=== PATIENT | male | born 1995 | race Caucasian/White ===

== ENCOUNTER 2022-04-16 14:50 | Outpatient (CLI) | payer OTHER, SELFPAY ==
[2022-04-16 22:42] LABS: SARS PCR* Negative SARS-CoV-2 (Negative)
== END 2022-04-16 14:51 | disposition home or self-care (01) ==
LOC: KYNREF 14:51
PROVIDERS: PCP Nurse Practitioner Family; Visit Provider Nurse Practitioner Family
DX: Z20.822 Contact with and (suspected) exposure to COVID-19 (principal); R05.9 Cough, unspecified
CPT/HCPCS: 87635

== ENCOUNTER 2023-11-19 20:06 | Outpatient (CLI) | payer BC, SELFPAY ==
--- NOTE | 2024-01-14 08:49 | W.PM.SLEEP ---
Sleep Study Details Details Date of Sleep Study: 11/19/23 Sleep Study Details: STUDY TYPE:? Home unattended ? BMI:? 31.7 ORDERING PROVIDER:? Shreyas INDICATION:? Concerned about sleep apnea ? SLEEP SUMMARY:? 476.1 minutes monitor RESPIRATORY SUMMARY:? AHI 7.2 , snoring 74.2%, 0.6% of study oxygen less than 90% PERIODIC LIMB MOVEMENTS OF SLEEP:? Not record CARDIAC:? Range 54-117, mean 71 IMPRESSION:? Mild obstructive sleep apnea RECOMMENDATION: If symptomatic treatment options include CPAP dental appliance and/or airway expansion surgery.
== END 2023-11-19 20:07 | disposition home or self-care (01) ==
PROVIDERS: PCP Nurse Practitioner Family; Visit Provider Nurse Practitioner Family
DX: G47.33 Obstructive sleep apnea (adult) (pediatric) (principal)
CPT/HCPCS: 95806

== ENCOUNTER 2024-02-25 17:49 | Outpatient (CLI) | payer BC, SELFPAY | END 2024-02-25 17:50 | disposition home or self-care (01) | PROVIDERS: PCP Nurse Practitioner Family; Visit Provider Nurse Practitioner Family | DX: L03.115 Cellulitis of right lower limb (principal) | CPT/HCPCS: 85025; 85651; 86140 ==

== ENCOUNTER 2024-02-27 14:27 | Outpatient (CLI) | payer BC, SELFPAY | END 2024-02-27 14:28 | disposition home or self-care (01) | PROVIDERS: PCP Nurse Practitioner Family; Visit Provider Nurse Practitioner Family | DX: L03.115 Cellulitis of right lower limb (principal); B95.61 Methicillin susceptible Staphylococcus aureus infection as the cause of diseases classified elsewhere | CPT/HCPCS: 85025; 85651; 86140 ==

== ENCOUNTER 2024-03-02 11:20 | Emergency (ER) | payer BC, SELFPAY ==
[2024-03-02 11:22] VITALS: BP 146/77; PULSE 83; RESP 16; TEMP 36.4; O2SAT 98; BMI 31.7
--- NOTE | 2024-03-02 12:13 | CRLHL7_ITS ---
For Patients: As a result of the Cures Act, medical imaging exams and procedure reports are released immediately into your electronic medical record. You may view this report before your referring provider. If you have questions, please contact your health care provider. INDICATION: Swelling. Infection. COMPARISON: Plain films 25 February 2024. TECHNIQUE: 116 mL Isovue-370 IV contrast. Imaging from hind foot toes. FINDINGS: Moderately large lentiform subcutaneous enhancing fluid collection in dorsal soft tissues over the metatarsals. Axial diameter 30 x 11 mm with craniocaudal length roughly 40 mm. This is centered over the 2nd and 3rd metatarsals. Surrounding edema. Punctate air defined shallow skin defect at the lateral mid to distal margin. No other air in the soft tissues. No radiopaque foreign body. No obvious tenosynovitis. Anatomic alignment of the joints with no degenerative change and no septic arthritis finding. 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 IMPRESSION: Moderately large subcutaneous abscess centered over the 2nd and 3rd metatarsals. Surrounding cellulitis. Please note that all CT scans at this facility use dose modulation, iterative reconstruction, and/or weight-based dosing when appropriate to reduce radiation dose to as low as reasonably achievable. Dictated by Hugo Cuevas MD @ 03/02/2024 1:13:47 PM (Electronically Signed)
--- NOTE | 2024-03-02 13:05 | ED_ITS ---
HPI - General Adult General Date Seen: 03/02/24 Chief complaint: Extremity Pain/Injury, Lower Stated complaint: Foot infection- need antibiotics Time Seen by Provider: 03/02/24 11:35 Source: patient History of Present Illness HPI narrative: Patient is a 28-year-old generally healthy young man who presents with ongoing swelling and pain in his right foot. He was seen in clinic last Saturday and started on antibiotics for a cellulitis. He showed me a picture of his foot at that time which was deeply red and significantly swollen. He notes that he did drop something on his foot about a month ago but did not have any significant injury related to that as far as he knew. He says x-rays were done in clinic last week and were unremarkable. He was given Rocephin and then started on doxycycline and cephalexin. He was seen again on in clinic and medications were continued. He called clinic today because he has continued to have swelling and pain in the foot although the redness is markedly better. He has not had fevers. They referred him here. Related Data Home Medications ?Medication ?Instructions ?Recorded ?Confirmed mupirocin 2 % topical ointment 1 applic topical TID 11/26/22 03/02/24 Previous Rx's ?Medication ?Instructions ?Recorded albuterol sulfate 2.5 mg/3 mL 2.5 mg (3 mL) inhalation Q4-6H PRN 06/04/22 (0.083 %) solution for nebulization shortness of breath or wheezing 30 days #90 mL albuterol sulfate 90 mcg/actuation 2 puff inhalation Q4-6H PRN 10/10/23 aerosol inhaler shortness of breath or wheezing 30 days #6.7 grams fluoxetine 40 mg capsule 80 mg (2 x 40 mg) PO QDAY #180 caps 10/10/23 fluticasone 250 mcg-salmeterol 50 1 inh inhalation BID #180 ea 10/10/23 mcg/dose blistr powdr for inhalation (Advair Diskus) omeprazole 40 mg capsule,delayed 40 mg PO QDAY #90 caps 10/10/23 release cephalexin 500 mg capsule 500 mg PO QID 10 days #40 caps 02/25/24 doxycycline hyclate 100 mg capsule 100 mg PO BID 10 days #20 caps 02/25/24 Allergies Allergy/AdvReac Type Severity Reaction Status Date / Time codeine Allergy Verified 03/02/24 13:05 morphine Allergy Verified 03/02/24 13:05 Sulfa (Sulfonamide Allergy Verified 03/02/24 13:05 Antibiotics) Review of Systems Status of ROS: Reports: 10 or more systems reviewed and unremarkable except as noted in History and below PFSH PFSH Family History Mother Lupus Social History Narrative: Single. No children. 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 Smoking Status: Never smoker Do you use any of these nicotine containing products: None How often do you have a drink containing alcohol: never AUDIT-C Alcohol total score: 0 Non-prescribed substance use: denies use service: No Exam Narrative: Exam Narrative: Vital signs reviewed In general, alert, well-appearing young man. Extremities: Examination of the right foot shows swelling over the dorsum of the foot, there is some fluctuance here as well. There is minimal erythema, it is quite tender to palpation. No significant warmth. Difficult to palpate dorsalis pedis pulses due to overlying swelling and tenderness, but foot looks well perfused. Does not seem to be tender on the plantar aspect of the foot and there is no erythema here. Const: Vital Signs, click to edit/add: Vital Signs - 24 hr 03/02/24 11:22 Temperature 97.6 F Pulse Rate [Pulse Oximeter] 83 Respiratory Rate 16 Blood Pressure [Ri ght Upper Arm] 146/77 H Pulse Oximetry 98 Oxygen Delivery Me thod Room Air Documenting provider has reviewed patient's vital signs: yes Course Course ED Course: Initially, due to the progression of this and the fluctuance on the dorsal aspect of the foot I suspected that he may have an abscess. I looked with the ultrasound and he did have evidence of a somewhat loculated fluid collection on ultrasound. Therefore, I recommended I and D. I made a small incision over the area of greatest fluctuance, did not immediately get any pus out, so I return to using the ultrasound and an 18 gauge needle. I was able to place a needle into those areas of loculation, but I did not get pus out. I did get some watery/bloody fluid out. I elected to pursue CT scan to further evaluate this area. I reviewed the CT scan, there does appear to be a fluid collection on the dorsum of the foot, radiology reads this as a moderately large subcutaneous abscess. Report linked below. Based on the appearance of the CT scan, I did make another attempt at aspiration of this, I put in some 0.25% bupivacaine and used an 18 gauge needle with assistance of ultrasound. Again, entering 1 of the fluid pockets that I can see, I got a small amount of bloody or serous bloody fluid out. I again do not see any pus. On ultrasound, this area that on CT looks like an abscess looks more soft tissue density. I talked with Dr. Hurtado, on- call for Orthopedics. He felt that this should be managed at this point as cellulitis, observation, podiatry follow-up. I also talked with the radiologist to read the CT scan to see if there is anything else on the differential that I should be aware of. He said that it could be a chronic hematoma, but patient had blunt trauma to the foot about a month ago with no real symptoms after that in terms of swelling. The swelling seems to have developed along with the cellulitis. Soft tissue mass he felt was less likely, and I would agree given the progression of this. Nonetheless, discussed all this with the patient. Will give him a g of Rocephin here, have him complete his course of antibiotics and then recommend podiatry follow-up. If the swelling is not resolving, repeat imaging would be warranted to make sure that this area is improving. Vital Signs Vital signs: Initial Vital Signs Temperature 97.6 F 03/02/24 11:22 Temperature Source Oral 03/02/24 11:22 Pulse Rate 83 03/02/24 11:22 Respiratory Rate 16 03/02/24 11:22 Blood Pressure 146/77 H 03/02/24 11:22 Blood Pressure Mean 100 03/02/24 11:22 Blood Pressure Position Sitting 03/02/24 11:22 Pulse Oximetry 98 03/02/24 11:22 Oxygen Delivery Method Room Air 03/02/24 11:22 Vital Signs Temperature 97.6 F 03/02/24 11:22 Pulse Rate 83 03/02/24 11:22 Respiratory Rate 16 03/02/24 11:22 Blood Pressure 146/77 H 03/02/24 11:22 Pulse Oximetry 98 03/02/24 11:22 Oxygen Delivery Method Room Air 03/02/24 11:22 Temperature 97.6 F 03/02/24 11:22 Pulse Rate 83 03/02/24 11:22 Respiratory Rate 16 03/02/24 11:22 Blood Pressure 146/77 H 03/02/24 11:22 Pulse Oximetry 98 03/02/24 11:22 Oxygen Delivery Method Room Air 03/02/24 11:22 Medications Administered Medications: Discontinued Medications Generic Name Dose Route Start Last Admin Trade Name Freq PRN Reason Stop Dose Admin Ceftriaxone Sodium 1 gm/ 100 mls @ 200 mls/hr 03/02/24 14:46 03/02/24 14:53 Sodium Chloride IVPB 03/02/24 14:47 200 mls/hr ONCE ONE Administration Medical Decision Making Imaging Data CT- Other: Attestation: I have reviewed the pertinent imaging results. Radiologist's impression: Patient: DONNA FARR Facility: [facility] . Site : 1995 Study: CT-Extremity Right FOOT-03/02/2024 1:04:12 PM Ordering Physician: Ania Bass Final Report: INDICATION: Swelling. Infection. COMPARISON: Plain films 25 February 2024. TECHNIQUE: 116 mL Isovue-370 IV contrast. Imaging from hind foot toes. FINDINGS: Moderately large lentiform subcutaneous enhancing fluid collection in dorsal soft tissues over the metatarsals. Axial diameter 30 x 11 mm with craniocaudal length roughly 40 mm. This is centered over the 2nd and 3rd metatarsals. Surrounding edema. Punctate air defined shallow skin defect at the lateral mid to distal margin. No other air in the soft tissues. No radiopaque foreign body. No obvious tenosynovitis. Anatomic alignment of the joints with no degenerative change and no septic arthritis finding. 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 IMPRESSION: Moderately large subcutaneous abscess centered over the 2nd and 3rd metatarsals. Surrounding cellulitis. Please note that all CT scans at this facility use dose modulation, iterative reconstruction, and/or weight-based dosing when appropriate to reduce radiation dose to as low as reasonably achievable. Dictated by Hugo Cuevas MD @ 03/02/2024 1:13:47 PM Discharge Plan Discharge Clinical Impression: Cellulitis of foot, right Patient Disposition: Home, Self-Care Condition: Stable Instructions: Cellulitis (ED) Additional Instructions: Follow up appointment is scheduled with Podiatry at the [facility] on 03/13/24 at 12pm. If you have any questions or need to reschedule, please call [phone]. [facility] [address] [place] [address] Prescriptions: No Action doxycycline hyclate 100 mg capsule 100 mg PO BID 10 Days Qty: 20 0RF cephalexin 500 mg capsule 500 mg PO QID 10 Days Qty: 40 0RF albuterol sulfate 2.5 mg /3 mL (0.083 %) solution for nebulization 2.5 mg inhalation Q4-6H PRN (Reason: shortness of breath or wheezing) 30 Days Qty: 90 6RF mupirocin 2 % ointment 1 applic topical TID fluticasone propion-salmeterol [Advair Diskus] 250-50 mcg/dose blister with device 1 inh inhalation BID Qty: 180 3RF fluoxetine 40 mg capsule 80 mg PO QDAY Qty: 180 3RF omeprazole 40 mg capsule,delayed release(DR/EC) 40 mg PO QDAY Qty: 90 3RF albuterol sulfate 90 mcg/actuation HFA aerosol inhaler 2 puff inhalation Q4-6H PRN (Reason: shortness of breath or wheezing) 30 Days Qty: 6.7 6RF Follow Up/Referrals: Patricia Pritchett APRN, NURSE NAVIGATOR [Primary Care Provider] - Stand Alone Forms: Informed Tradesealth Info Instructions
[2024-03-02] MEDS: cefTRIAXone 1 GM in 0.9 % SODIUM CHLORIDE Mini-bag 100 ML IVPB (14:53)
== END 2024-03-02 15:30 | disposition home or self-care (01) ==
PROVIDERS: Emergency Provider Emergency Medicine; PCP Nurse Practitioner Family
DX: L03.115 Cellulitis of right lower limb (principal)
CPT/HCPCS: 73701; 87070; 87186; 93971; 96365; 99284; J0696; Q9967

== ENCOUNTER 2024-09-08 17:53 | Emergency (ER) | payer BC, SELFPAY ==
--- OUTSIDE RECORDS SUMMARY | 2024-09-08 17:56 | XMS_ITS | Encounter Summary ---
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
--- OUTSIDE RECORDS SUMMARY | 2024-09-08 17:56 | XMS_ITS | Clinical Summary ---
[facility] Address [address] [place] [address] Care Team Providers Care Tnt Powder Worker Name Role Phone Manish Moran MD Primary Care Provider + [phone] Source Comments You are receiving this document as you are listed as the primary care provider,follow-up provider, or the patient has been referred to you for consultation.This is in compliance with the Medicare andMedicaid EHR Incentive Program,which states Providers who transition their patient to another setting of careor provider of care or refers their patient to another provider of care shouldprovide summary care record for each transition of care or referral. [employer] Allergies Active Allergy Reactions Criticality Noted Date Comments Codeine Rash 01/29/2020 Morphine Rash 01/29/2020 Sulfa Antibiotics Rash 01/29/2020 Medications omeprazole (PRILOSEC) 10 MG capsule Take 10 mg by mouth daily. Take 1 hour before a meal. Active Immunizations Immunization Administration Dates Next Due 4vHPV (Gardasil) 02/28/2012,10/29/2011, 2 DTaP 08/15/1998, 5,01/22/1994,1993, Flu Vac (3+ yrs) 01/24/2007 Flu Vac Preserv Free (3+yrs) 02/28/2012 HepA Ped/Adol (1-18 yrs) 02/10/2007,10/22/2005 HepB Ped/Adol (0-18 yrs) 05/28/1994,1993,0 1993 Hib (ActHIB) 01/22/1994,1993 IPV (Polio) 08/15/1998, 5,01/22/1994,1993, MCV4 (Menactra) 07/14/2013,02/10/2007 MMR 08/15/1998,09/21/1994 Tdap 07/11/2016,10/22/2005 Varicella 07/14/2013 Social History Tobacco Use Types Packs/Day Years Used Date Smoking Tobacco: Never Smokeless Tobacco: Never Alcohol Use Standard Drinks/Week Comments Yes 0 (1 standard drink = 0.6 oz pur e alcohol) socially Sex and Gender Information Value Date Recorded Sex Assigned at Not on file Legal Sex Male 5:11 AM CDT Gender Identity Not on file Sexual Orientation Not on file Last Filed Vital Signs Vital Sign Reading Time Taken Comments Blood Pressure 140/77 01/29/2020 4:17 PM BOTTOM BRUSHER Pulse 92 01/29/2020 4:17 PM BOTTOM BRUSHER Temperature 36.6 C (97.9 F) 01/29/2020 4:17 PM BOTTOM BRUSHER Respiratory Rate 18 01/29/2020 4:17 PM BOTTOM BRUSHER Oxygen Saturation 96% 01/29/2020 4:17 PM BOTTOM BRUSHER Inhaled Oxygen Concentration - - Weight 94.2 kg (207 lb 9.6 oz) 01/29/2020 4:17 P M BOTTOM BRUSHER Height 174.6 cm (5' 8.75) 01/29/2020 4:17 PM CS T Body Mass Index 30.88 01/29/2020 4:17 PM BOTTOM BRUSHER Plan of Treatment Health Maintenance Due Date Last Done Comments Hep C Screening (Preventive Services) 1993 HIV Screening (Preventive Services) 2009 Adult Preventive Visit 06/04/2011 COVID-19 Vaccine ( season) 2023 Influenza Vaccine (Season Ended) 2024 02/28/2012, 01/24/2007 DTaP/Tdap/Td Vaccine (8 - Tdap) 07/11/2026 07/11/2016, 10/22/2005, 08/15/1998, Additional history exists Zoster/Shingles Vaccine (1 of 2) 06/04/2043 Hib Vaccine Aged Out 01/22/1994, 1993 No lo nger eligible based on patient's age to complete this topic HepB Vaccine Completed 05/28/1994, 080 03/1993, 1993 IPV (Polio) Vaccine Completed 08/15/1998, 12/17/1994, 01/22/1994, Additional history exists HepA Vaccine Completed 02/10/2007, 10/22/2005 HPV Vaccine Completed 02/28/2012, 10/10, 08/28/2011 MCV4 Vaccine Aged Out 07/14/2013, 02/10/2007 No lo nger eligible based on patient's age to complete this topic Meningococcal B Vaccine Aged Out No l onger eligible based on patient's age to complete this topic Pneumococcal Vaccine Aged Out No long er eligible based on patient's age to complete this topic Insurance SELF INSURED Care Teams Tnt Powder Worker Relationship Specialty Start Date End Date Manish Moran MD [address] [place] [address] PCP - General 02/24/21
--- OUTSIDE RECORDS SUMMARY | 2024-09-08 17:56 | XMS_ITS | Patient Health Record ---
Author Organization [facility] Address [address] [facility] [address] [place], [place] [id number] Care Team Providers Care Inspector Assemblies And Installations Name Role Phone Santi Acuña MD Primary Care Provider [phone] Berny Black MD [phone] Allergies Allergen (clinical drug ingredient) Drug/Non Drug Allergy documented on EMR Reaction Allergy Type Onset Date Status codeine codeine (uncoded) Unknown Allergy Ac tive morphine Morphine Sulfate Unknown Drug Allergy Active Sulfa Unknown Drug Allergy Active Reason For Referral No Information Medications Medication SIG (Take, Route, Frequency, Duration) Notes Start Date End Date Status Albuterol Neb Pre-Mix 2.5mg (2.5 MG/3ML) 0.083% 1 vial inhalation every 4 hrs as needed Active Symbicort (160-4.5) 160-4.5 MCG/ACT 2 puffs twice a day 10/07/2013 Active Minocycline HCl once daily for acne Active Sertraline HCl 100 MG 1 tablet Orally On ce a day; Duration: 30 day(s) Active Augmentin 875-125mg 1 orally twice daily ; Duration: 14 days 02/08/2014 Active Albuterol HFA 108 (90 Base) MCG/ACT 2 puffs inhalation every 4 hrs as needed Active PredniSONE 20mg 1 1/2 tablets by beth th twice daily for 3-5 days when in [place] Active Social History Tobacco Use: Social History Observation Description Date Details (start date - stop date) Never Smoker NA - NA Tobacco Question Answer Notes status: never smoked Problems Problem Type SNOMED Code ICD Code Onset Dates Problem Status W/U Status Risk Notes Problem Chronic sinusitis (473.9) Active confirmed Problem Moderate persistent asthma (254213321) Moderate persistent asthma (493.90) Active confirmed 2 Plan Of Treatment No Information Insurance Providers Payer Name Payer Address Payer Phone Subscriber Number Group Number Insured Name Patient Relationship to Insured Coverage Start Date Coverage End Date [employer] [address] [address] [place] [phone] [id number] Berny Carpio Child - Insured has Financial Responsibility 0
[2024-09-08 18:01] VITALS: BP 136/77; PULSE 79; RESP 16; TEMP 36.9; O2SAT 98; BMI 34.2
--- NOTE | 2024-09-08 18:07 | ED_ITS ---
HPI - General Adult General Chief complaint: Laceration/Wound Stated complaint: Cut forehead Time Seen by Provider: 09/08/24 17:55 History of Present Illness HPI narrative: Pt reports he ran into the corner panel on a cattle truck . Struck forehead. Bleeding controlled, denies LOC. Thinks he is up to date on tetanus. 29-year-old man presenting to the emergency department following sustaining a head injury to his forehead. He struck his head on what he describes as a relat ively clean bar near cattle pen/truck. No new neck or back pain. No loss of conscious. No nausea. He believes himself to be up-to-date on tetanus. Related Data Previous Rx's ?Medication ?Instructions ?Recorded albuterol sulfate 90 mcg/actuation 2 puff inhalation Q 4-6H PRN 10/10/23 aerosol inhaler shortness of breath or wheez ing 30 days #6.7 grams fluoxetine 40 mg capsule 80 mg (2 x 40 mg) PO QDAY #1 80 caps 10/10/23 omeprazole 40 mg capsule,delayed 40 mg PO QDAY #90 cap s 10/10/23 release Allergies Allergy/AdvReac Type Severity Reaction Status Date / Time codeine Allergy Verified 03/27/24 12:54 morphine Allergy Verified 03/27/24 12:54 Sulfa (Sulfonamide Allergy Verified 03/27/24 12:54 Antibiotics) Review of Systems Status of ROS: Reports: 6 or more systems reviewed and unremarkable except as noted in History and below PFSH PFSH Family History Mother Lupus Social History Narrative: Single. No children. 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 Smoking Status: Never smoker Do you use any of these nicotine containing products: None How often do you have a drink containing alcohol: 2-4 times a month How many standard drinks containing alcohol do you have on a typical day: 3 or 4 AUDIT-C Alcohol total score: 3 Non-prescribed substance use: denies use service: No Exam Narrative: Exam Narrative: Pleasant. Go home. Has blood stained otherwise clean gauze over wound on his forehead. Has large side ramirez. Neck is supple. No neck or back pain. Cranial nerves 2-12 intact. Pupils are equal and brisk. Moving all extremities without difficulty. Examination of the wound in question is just below and at the anterior mid forehead hairline. There is a somewhat flap laceration somewhat irregular slightly L-shaped apex superior measuring 5 cm. The exploration calvarium is not visible. Vasculature is. Bleeds lightly with manipulation. Intact forehead musculature. Const: Vital Signs, click to edit/add: Vital Signs - 24 hr 09/08/24 18:01 Temperature 98.5 F Pulse Rate [Pulse Oximeter] 79 Respiratory Rate 16 Blood Pressure [Ri ght Upper Arm] 136/77 Pulse Oximetry 98 Oxygen Delivery Me thod Room Air Documenting provider has reviewed patient's vital signs: yes Course Vital Signs Vital signs: Initial Vital Signs Temperature 98.5 F 09/08/24 18:01 Temperature Source Temporal Artery Scan 09/08/24 18:01 Pulse Rate 79 09/08/24 18:01 Respiratory Rate 16 09/08/24 18:01 Blood Pressure 136/77 09/08/24 18:01 Blood Pressure Mean 96 09/08/24 18:01 Blood Pressure Position Sitting 09/08/24 18:01 Pulse Oximetry 98 09/08/24 18:01 Oxygen Delivery Method Room Air 09/08/24 18:01 Vital Signs Temperature 98.5 F 09/08/24 18:01 Pulse Rate 79 09/08/24 18:01 Respiratory Rate 16 09/08/24 18:01 Blood Pressure 136/77 09/08/24 18:01 Pulse Oximetry 98 09/08/24 18:01 Oxygen Delivery Method Room Air 09/08/24 18:01 Temperature 98.5 F 09/08/24 18:01 Pulse Rate 79 09/08/24 18:01 Respiratory Rate 16 09/08/24 18:01 Blood Pressure 136/77 09/08/24 18:01 Pulse Oximetry 98 09/08/24 18:01 Oxygen Delivery Method Room Air 09/08/24 18:01 Medical Decision Making MDM Narrative Medical decision making narrative: Clearly well require suturing. Returned to anesthetize with lidocaine with epinephrine in the wound. We did discuss supraorbital block but I think epinephrine effect on control of field would be a good idea. Is nervous about this injection but tolerates it well. Injected in total 4 mL of lidocaine with epinephrine throughout the wound. Ultimately excellent wound anesthesia achieved. After initial injection though I had attempted to clean with Shur-Clens but with the stinging returned to inject further and ultimately irrigated under light pressure with normal saline. Very clean wound achieved. With good anesthesia then was able to suture with a total of 11 interrupted sutures of 5 and 6 0 Ethilon. Very good wound approximation and control of bleeding. Bacitracin and bandage placed. Discussed pressure dressing but I do not think is necessary at this time. Verified current DTaP Was not demonstrating concussive symptoms. See patient discharge plan for further discussion It looks like you did have a Tdap (tetanus, diphtheria, pertussis) immunization on 02/25/2024. So yes, you are current just like you said. sutures out in 9 - 10 days. antibiotic ointment for 5 days and then to a dry dressing. ok to get wet but try not to soak while sutures are in. for further scar reduction/wound healing if desired -- after the scab falls off, can apply daily vitamin e oil or something like maderma or silicone-containing ointments or bandaids daily. especially protect from sun exposure for the first 9 - 12 months. Watch for spreading redness after 2 days accompanied by heat, swelling, marked increase in pain, purulent drainage. Medical Records Medical records reviewed: Yes I reviewed the patient's medical records Discharge Plan Discharge Clinical Impression: Forehead laceration, Closed head injury Patient Disposition: Home w/ Parent or Adult Condition: Improved Additional Instructions: It looks like you did have a Tdap (tetanus, diphtheria, pertussis) immunization on 02/25/2024. So yes, you are current just like you said. sutures out in 9 - 10 days. antibiotic ointment for 5 days and then to a dry dressing. ok to get wet but try not to soak while sutures are in. for further scar reduction/wound healing if desired -- after the scab falls off, can apply daily vitamin e oil or something like maderm a or silicone-containing ointments or bandaids daily. especially protect from sun exposure for the first 9 - 12 months. Watch for spreading redness after 2 days accompanied by heat, swelling, marked increase in pain, purulent drainage. Prescriptions: No Action fluoxetine 40 mg capsule 80 mg PO QDAY Qty: 180 3RF omeprazole 40 mg capsule,delayed release(DR/EC) 40 mg PO QDAY Qty: 90 3RF albuterol sulfate 90 mcg/actuation HFA aerosol inhaler 2 puff inhalation Q4-6H PRN (Reason: shortness of breath or wheezing) 30 Days Qty: 6.7 6RF Follow Up/Referrals: Patricia Pritchett, [employer], HIGHWAY ENG[employer] [Primary Care Provider, Family Practice] Stand Alone Forms: Paymentusealth Info Instructions
== END 2024-09-08 19:43 | disposition home or self-care (01) ==
PROVIDERS: Emergency Provider Family Medicine; PCP Nurse Practitioner Family
DX: S01.91XA Laceration without foreign body of unspecified part of head, initial encounter (principal); W26.9XXA Contact with unspecified sharp object(s), initial encounter
CPT/HCPCS: 12002; 99283; 99284